=== PATIENT | female | born 1995 | race Caucasian/White ===

== ENCOUNTER 2019-10-01 13:38 | Emergency (ER) | payer OTHER ==
[~2019-10-01] VITALS: Ht 154.9 cm; Wt 84.4 kg
[2019-10-01 14:26] VITALS: BP 136/96
[2019-10-01] MEDS ORDERED: LIDOCAINE 1% HCL (LOCAL ANESTH.) INJ 20ML MDV ONE (15:31)
[2019-10-01] MEDS ORDERED: TETANUS-DIPTH-ACEL PERTUSSIS 0.5ML SYR Tdap IM ONE (16:00)
== END 2019-10-01 15:55 | disposition home or self-care (01) ==
LOC: ER 13:38
DX: S61.011A Laceration without foreign body of right thumb without damage to nail, initial encounter (principal); E78.5 Hyperlipidemia, unspecified; W26.9XXA Contact with unspecified sharp object(s), initial encounter; Y93.89 Activity, other specified; Y92.89 Other specified places as the place of occurrence of the external cause; Y99.8 Other external cause status
CPT/HCPCS: 12001; 90471; 90715; 99283; J2001

== ENCOUNTER 2021-10-08 00:31 | Emergency (ER) | payer OTHER ==
[~2021-10-08] VITALS: Ht 152.4 cm; Wt 88.9 kg
[2021-10-08 00:32] VITALS: BP 123/90
[2021-10-08 02:09] LABS: Basophils # (auto) 0 10 ^3/uL (0-0.2); Basophils % (auto) 0.3 % (0.0-2.0); Eosinophils # (auto) 0.1 10 ^3/uL (0-0.8); Eosinophils % (auto) 0.9 % (0.0-7.0); Hematocrit 42.3 % (36.0-46.0); Hemoglobin 14.2 g/dL (12.2-16.2); Lymphocytes # (auto) 0.7 10 ^3/uL (0.4-5.4); Lymphocytes % (auto) 6.1 % (10.0-50.0); Mean Corpuscular Hemoglobin 28.8 pg (28.0-32.0); Mean Corpuscular Hgb Conc. 33.5 g/dL (32.0-36.0); Mean Corpuscular Volume 85.8 fL (80.0-100.0); Monocytes # (auto) 0.6 10 ^3/uL (0-1.3); Monocytes % (auto) 5.2 % (0.0-12.0); Neutrophils # (auto) 9.8 10 ^3/uL (1.6-8.6); Neutrophils % (auto) 87.5 % (37.0-80.0); Red Blood Cells 4.93 10^6/uL (4.0-5.20); Red Cell Distribution Width 16.2 % (11.8-14.3); White Blood Cell 11.2 10^3/uL (4.4-10.8)
[2021-10-08 02:28] LABS: BUN/Creatinine Ratio 18.6; Calcium 8.9 mg/dL (8.5-10.1); Potassium 3.7 mmol/L (3.5-5.1)
[2021-10-08 02:29] LABS: Bilirubin, Total 0.7 mg/dL (0.2-1.0); Total Protein 8.1 g/dL (6.4-8.2)
== END 2021-10-08 02:52 | disposition left against medical advice (07) ==
LOC: ER 00:31
DX: R10.9 Unspecified abdominal pain (principal); R11.2 Nausea with vomiting, unspecified; Z53.21 Procedure and treatment not carried out due to patient leaving prior to being seen by health care provider
CPT/HCPCS: 36415; 80053; 85025